=== PATIENT | female | born 1965 | race Caucasian/White ===

== ENCOUNTER 2016-11-11 23:32 | Emergency (ER) | payer BC ==
[2016-11-11] MEDS ORDERED: EFFEXOR XR75 M1 PO (23:44)
[2016-11-12] MEDS ORDERED: TRAMADOL HCL50 M2 PO (01:39)
[2016-11-12] MEDS ORDERED: AUGMENTIN 875-1 EAC2 PO (01:39)
== END 2016-11-12 01:43 ==
LOC: EDMED 23:32
PROC: 09QKXZZ Repair Nasal Mucosa and Soft Tissue, External Approach (ICD-10-PCS; principal; 2016-11-12)
DX: S01.25XA Open bite of nose, initial encounter (principal); F32.9 Major depressive disorder, single episode, unspecified; K08.89 Other specified disorders of teeth and supporting structures; Z98.890 Other specified postprocedural states; W54.0XXA Bitten by dog, initial encounter; Y92.019 Unspecified place in single-family (private) house as the place of occurrence of the external cause